=== PATIENT | female | born 1990 | race Caucasian/White ===

== ENCOUNTER 2018-04-02 01:39 | Emergency (ER) | payer SELFPAY ==
[2018-04-02 04:59] LABS: #Basophils 0.1 thou/uL (0.0-0.2); #Eosinphils 0.2 thou/uL (0.0-0.7); #Lymphocytes 3.3 thou/uL (1.20-3.40); #Monocytes 0.4 thou/uL (0.11-0.59); #Neutrophils 3.9 thou/uL (1.40-6.50); %Basophils 0.8 % (0.0-1.0); %Eosinophils 2.4 % (0.0-10.0); %Lymphocytes 42.1 % (21.0-51.0); %Monocytes 4.7 % (0.0-10.0); Hemoglobin 13.2 g/dL (12.0-16.0); Mean Corpuscular HGB CONC 33.3 g/dL (32.0-36.0); Mean Corpuscular Hemoglobin 28.5 pg (27.0-31.0); Mean Corpuscular Volume 85.6 fl (81.0-99.0); Mean Platelet Volume 7.6 fL (7.4-10.4); Platelet Count 295 thou/uL (130-400); RBC Distribution Width 12.8 % (11.5-14.5); Red Blood Cell (RBC) Count 4.63 mill/uL (4.20-5.40); White Blood Cell (WBC) Count 7.8 thou/uL (4.8-10.8)
[2018-04-02 05:12] LABS: ALT (SGPT) 15 U/L (8-55); AST (SGOT) 12 U/L (5-34); Alkaline Phosphatase 54 U/L (40-150); Anion Gap 11 mmol/L (10-20); BUN (Urea Nitrogen) 9 mg/dL (7.0-18.7); Bilirubin, Total 0.3 mg/dL (0.2-1.2); Calc. Creatinine Clearance 0 mL/min (70-130); Carbon Dioxide 27 mmol/L (22-29); Chloride 105 mmol/L (98-107); Estimated GFR-MDRD 89; Globulin 2.9 g/dL (2.4-3.5); Glucose 103 mg/dL (70-105); Protein, Total 6.9 g/dL (6.0-8.3); Sodium 139 mmol/L (136-145)
[2018-04-02] MEDS ORDERED: Metoclopramide HCl 10 MG/2 ML VIAL ONE (05:14)
[2018-04-02] MEDS ORDERED: Metoclopramide 10 MG/10 ML UDCUP ONE (05:14)
[2018-04-02] MEDS ORDERED: Ketorolac Tromethamine 30 MG/ML VIAL ONE (05:14)
[2018-04-02 05:15] LABS: BHCG - Serum Negative (NEGATIVE); Pregs Control Background? CLEAR/WHITE (CLR/WHITE); Pregs Control Bar Appear? YES (CONTROL BAR)
--- NOTE | 2018-04-02 13:36 | CT ---
PRELIMINARY REPORT/[facility]/EMERGENTY AFTER-HOURS PROCEDURE EXAM: CT Head Without Intravenous Contrast CLINICAL HISTORY: 27 years old, female; Pain; Headache; Patient HX: 27 y/o f with presentation of flu-like symptoms. Pt reports generalized myalgias, generalized tingling, and migraine x3 days. Pt had some relief with am itriptyline and states that pain is worst at the left holiness. 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 Pt states that she has a "floaty feeling" with her riley's. Pt reports that she is feeling much improved no w. Family reports that pt has been extremely anxious. Denies any other complaints. HX of brain tumor, last CT brain was x1.5 years ago. TECHNIQUE: Axial computed tomography images of the head/brain without intravenous contrast. COMPARISON: No relevant prior studies available. FINDINGS: Encephalomalacia in the right occipital lobe. Calhoun-white matter differentiation is preserved. No intracranial hemorrhage or hydrocephalus. No mass, mass effect or midline shift. Scattered calcification in the tentorium on the right. No effacement of the cortical sulci and basal cisterns. Orbits are unremarkable. Paranasal sinuses are clear. Mastoid air cells are clear. No acute fracture. Postsurgical changes in the calvarium posteriorly. Soft tissues unremarkable. IMPRESSION: No acute intracranial abnormality. Thank you for allowing us to participate in the care of your patient. Dictated and Authenticated by: Alexei Perry MD 04/02/2018 6:28 AM Central Time ([place] & [place]) FINAL REPORT EMERGENT AFTER HOURS NONCONTRAST CT HEAD: DATE: 04/02/18. HISTORY: Left-sided weakness, patient feels as if floating. Generalized myalgias and tingling. Migraine head ache for 3 days. COMPARISON: 03/17/16. IMPRESSION: 1. No acute intracranial abnormality is demonstrated. 2. Stable postoperative changes right occipital bone with stable encephalomalacia in the right occip ital lobe which may be postoperative in origin as well. Metallic densities are seen within the scalp soft tissues in this region as well. 3. CT head is stable from prior study in 2016. 4. Findings are in agreement with the preliminary report by [facility]. POS: [facility]
== END 2018-04-02 06:43 | disposition home or self-care (01) ==
LOC: ERS 01:39
DX: G43.809 Other migraine, not intractable, without status migrainosus (principal); F41.9 Anxiety disorder, unspecified; Z79.899 Other long term (current) drug therapy
CPT/HCPCS: 36415; 70450; 80053; 84703; 85025; 93005; 96365; 96375; J1885; J2765

== ENCOUNTER 2019-05-27 19:00 | Emergency (ER) | payer SELFPAY ==
[2019-05-27] MEDS ORDERED: Promethazine HCl 25 MG/ML VIAL ONE (19:31)
[2019-05-27] MEDS ORDERED: Pantoprazole 40 MG VIAL ONE (19:31)
[2019-05-27] MEDS ORDERED: Mag-Al 1200 mg/1200 mg/30 ML UDCUP ONE (19:31)
[2019-05-27] MEDS ORDERED: Lidocaine Viscous Sol 2% 15 ml UD Cup ONE (19:31)
[2019-05-27 20:16] LABS: #Eosinphils 0.1 thou/uL (0.0-0.7); #Lymphocytes 2.3 thou/uL (1.20-3.40); #Monocytes 0.7 thou/uL (0.11-0.59); #Neutrophils 8.3 thou/uL (1.40-6.50); %Basophils 0.2 % (0.0-1.0); %Eosinophils 0.5 % (0.0-10.0); %Lymphocytes 20.4 % (21.0-51.0); %Monocytes 5.7 % (0.0-10.0); %Neutrophils 73.1 % (42.0-75.0); Hemoglobin 11.4 g/dL (12.0-16.0); Mean Corpuscular HGB CONC 32.7 g/dL (32.0-36.0); Mean Corpuscular Volume 85.7 fL (78.0-98.0); Mean Platelet Volume 7.6 fL (7.4-10.4); Platelet Count 253 thou/uL (130-400); Red Blood Cell (RBC) Count 4.06 mill/uL (4.20-5.40); White Blood Cell (WBC) Count 11.4 thou/uL (4.8-10.8)
[2019-05-27 20:22] LABS: BHCG - Serum Negative (NEGATIVE); Pregs Control Background? CLEAR/WHITE (CLR/WHITE); Pregs Control Bar Appear? YES (CONTROL BAR)
[2019-05-27 20:38] LABS: ALT (SGPT) 23 U/L (8-55); AST (SGOT) 20 U/L (5-34); Albumin 3.7 g/dL (3.5-5.0); Alkaline Phosphatase 62 U/L (40-150); Anion Gap 9 mmol/L (10-20); BUN (Urea Nitrogen) 11 mg/dL (7.0-18.7); Bilirubin, Total 0.5 mg/dL (0.2-1.2); CK (CPK) 69 U/L (29-168); Calc. Creatinine Clearance 0 mL/min (70-130); Calcium 8.8 mg/dL (7.8-10.44); Carbon Dioxide 26 mmol/L (22-29); Chloride 104 mmol/L (98-107); Estimated GFR-MDRD 89; Globulin 2.8 g/dL (2.4-3.5); Glucose 95 mg/dL (70-105); Lipase 9 U/L (8-78); Potassium 3.3 mmol/L (3.5-5.1); Protein, Total 6.5 g/dL (6.0-8.3); Sodium 136 mmol/L (136-145)
== END 2019-05-27 22:15 | disposition home or self-care (01) ==
LOC: ERS 19:00
DX: R10.13 Epigastric pain (principal); R11.2 Nausea with vomiting, unspecified; F41.9 Anxiety disorder, unspecified; Z87.19 Personal history of other diseases of the digestive system
CPT/HCPCS: 36415; 80053; 82550; 83605; 83690; 84703; 85025; 93005; 94760; 96365; 96366; 96375; C9113; J2550

== ENCOUNTER 2022-09-30 11:51 | Outpatient (CLI) | payer OTHER | END 2022-09-30 11:52 | disposition home or self-care (01) | LOC: RAD-FRANK 11:51 | PROVIDERS: ATTEND Nurse Practitioner Family | DX: R05.1 Acute cough (principal) | CPT/HCPCS: 71046 ==